=== PATIENT | male | born 1990 | race Caucasian/White ===

== ENCOUNTER 2022-02-28 13:01 | Emergency (ER) | payer MEDICAID, SELFPAY ==
[2022-02-28 13:03] VITALS: BP 130/89; PULSE 108; RESP 20; TEMP 36.6; O2SAT 99
--- NOTE | 2022-02-28 13:43 | ED.GENADUL_ITS ---
Discharge Plan Disposition Patient Disposition: STILL A PATIENT Condition: Stable Discharge Details Clinical Impression: Depression with suicidal ideation Primary Care Provider: Unknown,Unknown ED Provider: Charis Ayala Home Meds and New Rx's Prescriptions: No Action prazosin 1 mg capsule 1 cap PO HS lamotrigine 25 mg tablet 1 tab PO DAILY epinephrine 0.3 mg/0.3 mL auto-injector 7 ea subcut ONCE albuterol sulfate [ProAir HFA] 90 mcg/actuation HFA aerosol inhaler 1 - 2 inh INHALATION Q4-5H PRN Discharge Data Discharge Date/Time-TO BE ENTERED AT DEPARTURE: 02/28/22 18:14 Medical Decision Making <OLE Brito - Last Filed: 02/28/22 15:39> 31-year-old gentleman who was at the care bed on Thursday for ongoing depression and SI, had medication changes, presents now to the ER requesting hospitalization after he was told by his that she wants a divorce. He has no acute medical concerns or complaints. Using the [employer] medical clearance form I do not believe that laboratory values are indicated. I will obtain a urine drug sample as well as a COVID test. I have requested a mental health evaluation, interim care plan, and a CPSO. Tox screen positive for THC. COVID is pending. Mental health evaluation completed, patient will be a voluntary mental health placement. They are initially hopeful that potential placement may happen today. Will await to hear back from them. If placement is found the patient can be directed transfer from the ER with no placement happens this evening then we can reassess the potential to admit to our facility until placement has been found. COVID-negative This documentation was generated using [employer] dictation system, please disregard any oddities of phrase or misspellings. Lab Data Lab results reviewed: Yes I reviewed the patient's lab results. Labs: Laboratory Tests Range/Units 02/28/22 02/28/22 02/28/22 13:21 13:21 13:21 WBC Cancelled RBC Cancelled Hgb Cancelled Hct Cancelled MCV Cancelled MCH Cancelled MCHC Cancelled RDW Cancelled Plt Count Cancelled MPV Cancelled Immature Gran % Cancelled Neutrophils % Cancelled Band Neutrophils % Cancelled Lymphocytes % Cancelled Atypical Lymphs % Cancelled Monocytes % Cancelled Eosinophils % Cancelled Basophils % Cancelled Metamyelocytes % Cancelled Myelocytes % Cancelled Promyelocytes % Cancelled Other Cells % Cancelled Nucleated RBC % Cancelled Absolute Neutrophils Cancelled Absolute Lymphocytes Cancelled Absolute Monocytes Cancelled Absolute Eosinophils Cancelled Absolute Basophils Cancelled RBC Morphology Cancelled Polychromasia Cancelled Hypochromasia Cancelled Poikilocytosis Cancelled Basophilic Stippling Cancelled Anisocytosis Cancelled Microcytosis Cancelled Macrocytosis Cancelled Spherocytes Cancelled Tear Drop Cells Cancelled Ovalocytes Cancelled Stomatocytes Cancelled [place] Bodies Cancelled Rodrigue Cells/Echinocytes Cancelled Acanthocytes (Spur) Cancelled Schistocytes Cancelled Sodium Cancelled Potassium Cancelled Chloride Cancelled Carbon Dioxide Cancelled Anion Gap Cancelled BUN Cancelled Creatinine Cancelled Estimated GFR/1.73 m2 Cancelled Glucose Cancelled Calcium Cancelled Total Bilirubin Cancelled AST Cancelled ALT Cancelled Alkaline Phosphatase Cancelled Total Protein Cancelled Albumin Cancelled TSH Cancelled Urine Color Urine Clarity Urine pH Ur Specific Loiza Urine Protein Urine Ketones Urine Blood Urine Nitrite Urine Bilirubin Urine Urobilinogen Ur Leukocyte Esterase Urine Glucose Salicylates Cancelled Urine Opiates Screen (Negative) Urine Methadone Screen (Negative) Acetaminophen Cancelled Ur Barbiturates Screen (Negative) Ur Tricyclics Screen (Negative) Ur Amphetamines Screen (Negative) U Benzodiazepines Scrn (Negative) Urine Cocaine Screen (Negative) Ur THC Screen (Negative) Ethyl Alcohol Cancelled COVID-19 Source SARS-CoV-2 (PCR) (Negative) Range/Units 02/28/22 02/28/22 02/28/22 13:30 13:40 13:41 WBC RBC Hgb Hct MCV MCH MCHC RDW Plt Count MPV Immature Gran % Neutrophils % Band Neutrophils % Lymphocytes % Atypical Lymphs % Monocytes % Eosinophils % Basophils % Metamyelocytes % Myelocytes % Promyelocytes % Other Cells % Nucleated RBC % Absolute Neutrophils Absolute Lymphocytes Absolute Monocytes Absolute Eosinophils Absolute Basophils RBC Morphology Polychromasia Hypochromasia Poikilocytosis Basophilic Stippling Anisocytosis Microcytosis Macrocytosis Spherocytes Tear Drop Cells Ovalocytes Stomatocytes [place] Bodies [place] Cells/Echinocytes Acanthocytes (Spur) Schistocytes Sodium Potassium Chloride Carbon Dioxide Anion Gap BUN Creatinine Estimated GFR/1.73 m2 Glucose Calcium Total Bilirubin AST ALT Alkaline Phosphatase Total Protein Albumin TSH Urine Color Cancelled Urine Clarity Cancelled Urine pH Cancelled Ur Specific [place] Cancelled Urine Protein Cancelled Urine Ketones Cancelled Urine Blood Cancelled Urine Nitrite Cancelled Urine Bilirubin Cancelled Urine Urobilinogen Cancelled Ur Leukocyte Esterase Cancelled Urine Glucose Cancelled Salicylates Urine Opiates Screen (Negative) Negative Urine Methadone Screen (Negative) Negative Acetaminophen Ur Barbiturates Screen (Negative) Negative Ur Tricyclics Screen (Negative) Negative Ur Amphetamines Screen (Negative) Negative U Benzodiazepines Scrn (Negative) Negative Urine Cocaine Screen (Negative) Negative Ur THC Screen (Negative) Positive A Ethyl Alcohol COVID-19 Source Nasal/Nares SARS-CoV-2 (PCR) (Negative) Negative <OLE Terrell - Last Filed: 03/01/22 15:36> 31-year-old gentleman who was at the care bed on Thursday for ongoing depression and SI, had medication changes, presents now to the ER requesting hospital ization after he was told by his that she wants a divorce. He has no acute medical concerns or complaints. Using the [employer] medical clearance form I do not believe that laboratory values are indicated. I will obtain a urine drug sample as well as a COVID test. I have requested a mental health evaluation, interim care plan, and a CPSO. Tox screen positive for THC. COVID is pending. Mental health evaluation completed, patient will be a voluntary mental health placement. They are initially hopeful that potential placement may happen today. Will await to hear back from them. If placement is found the patient can be directed transfer from the ER with no placement happens this evening then we can reassess the potential to admit to our facility until placement has been found. COVID-negative This documentation was generated using [employer] dictation system, please disregard any oddities of phrase or misspellings. LB: Care is accepted in signout from Miki Schwarz physician library media assistant pending admission versus transfer to mental health facility [facility] has accepted this patient and he is preparing for transportation He has been alert, oriented, calm, and cooperative throughout this encounter, he is made aware regarding transfer and is agreeable at this time HPI <OLE Brito - Last Filed: 02/28/22 15:39> General Mode of arrival: EMS . Date/Time Provider Initiated Documentation: 02/28/22 13:09 . Limitations to Documentation: no limitations . Information obtained by: patient and EMS . HPI Narrative: This is a 31-year-old gentleman, who reports past medical history of depression, SI, bipolar disorder, IBS, presenting from the care bed via EMS for worsening depression and SI requesting hospitalization. Patient reports that he was at the care bed starting Thursday for worsening depression and SI, medication changes were made, he began taking the Latuda and his dose of lamotrigine was increased. He states that he felt well overnight and into today, like the medication was a good change; however, today his came and stated she wanted a divorce which exacerbated his symptoms. Patient states that he had a negative COVID test on Thursday at that time of his placement. He denies any acute medical concerns or complaints, recent illness or trauma. Patient states that he has been hospitalized in the past for depression and SI. He admits to marijuana use but denies other drug or alcohol use. Related Data Home Medications Medication Instructions Recorded Confirmed albuterol sulfate 90 mcg/actuation 1 - 2 inh inhalation Q4-5H PRN 02/28/22 02/28/22 aerosol inhaler (ProAir HFA) epinephrine 0.3 mg/0.3 mL 7 ea subcut ONCE 02/28/22 02/28/22 injection, auto-injector lamotrigine 25 mg tablet 1 tab PO DAILY 02/28/22 02/28/22 prazosin 1 mg capsule 1 cap PO HS 02/28/22 02/28/22 Allergies Allergy/AdvReac Type Severity Reaction Status Date / Time cinnamon Allergy Severe Anaphylaxis Unverified 02/28/22 14:00 egg Allergy Severe Anaphylaxis Unverified 02/28/22 14:00 mushroom Allergy Severe Anaphylaxis Unverified 02/28/22 14:00 shellfish derived Allergy Severe Anaphylaxis Unverified 02/28/22 14:00 gluten AdvReac Intermediate Diarrhea Unverified 02/28/22 14:00 lactose AdvReac Intermediate Diarrhea Unverified 02/28/22 14:00 General Stated Complaint: PsychEval CARITO: 2 Review of Systems <OLE Brito - Last Filed: 02/28/22 15:39> Constitutional Constitutional: Denies fatigue, Denies fever(s), Denies headache(s) and Denies weakness Eyes Eyes: Denies change in vision ENT Ears, Nose, Mouth, and Throat: Denies headache(s) and Denies neck pain Cardiovascular Cardiovascular: Denies chest pain and Denies dyspnea Respiratory Respiratory: Denies cough and Denies dyspnea Gastrointestinal Gastrointestinal: Denies abdominal pain, Reports diarrhea (chronic), Denies nausea and Denies vomiting Musculoskeletal Musculoskeletal: Denies back pain, Denies neck pain, Denies numbness and Denies tingling Integumentary/Breasts Skin/Breast: Denies rash Neurologic Neurologic: Denies headache(s), Denies numbness, Denies tingling and Denies weakness Psychiatric Psychiatric: Reports depression, Denies homicidal ideation and Reports suicidal ideation Endocrine Endocrine: Denies fatigue PFSH <OLE Brito - Last Filed: 02/28/22 15:39> All Active Problems (Updated 02/28/22 @ 14:51 by OLE Brito) Depression with suicidal ideation (Acute) Social History Smoking/Tobacco Use Status: Never Smoking risk assessment performed?: Yes Exam <OLE Brito - Last Filed: 02/28/22 15:39> Const General: cooperative, healthy appearing, comfortable and no acute distress Orientation: alert, awake and oriented x3 HENMT Head: normal to inspection, normocephalic and atraumatic Face and sinus: normal facial exam Mouth: moist mucous membranes Eyes General: appearance normal, both eyes and all related structures Conjunctivae: conjunctivae normal Neck Neck: normal visual inspection, full ROM, no meningeal signs, trachea midline and supple Resp Effort & Inspection: normal respiratory effort and able to speak in complete sentences Auscultation: clear to auscultation bilaterally Cardio Rate: regular rate Rhythm: regular rhythm GI Palpation: soft and nontender Back/Spine/Pelvis Back: No back tenderness Skin General skin exam: no rashes or lesions noted Neuro General: patient alert, patient awake, patient oriented x3, moves all extremities and no focal motor deficits Cognition: normal cognition Speech: speech normal Gait: normal gait Motor: muscle tone normal throughout Sensory Exam: no sensory deficits noted Extrem General: normal to inspection, full ROM and capillary refill normal Psych Appearance: grossly normal Mental Status: mental status grossly normal Speech and Movement: speech and movement normal Mood: dysthymic mood Affect: sad Attitude: cooperative Thought Process: normal Thought Content: suicidality Insight: fair Judgment: fair Course <OLE Brito - Last Filed: 02/28/22 15:39> Vital Signs Vital signs: Vital Signs Temperature 36.6 C 02/28/22 13:03 Pulse 108 H 02/28/22 13:03 Respiratory Rate 20 02/28/22 13:03 Blood Pressure 130/89 02/28/22 13:03 Pulse Oximetry 99 02/28/22 13:03 Temperature 36.6 C 02/28/22 13:03 Temperature Source Skin 02/28/22 13:03 Pulse 108 H 02/28/22 13:03 Respiratory Rate 20 02/28/22 13:03 Blood Pressure 130/89 02/28/22 13:03 Blood Pressure Position Sitting 02/28/22 13:03 Pulse Oximetry 99 02/28/22 13:03 Oxygen Delivery Method Room Air 02/28/22 13:03 Oxygen Flow Rate 0 02/28/22 13:03 Sign Out <OLE Brito - Last Filed: 02/28/22 15:39> Sign Out Data: Sign Out Comment: Depression with SI. Medically cleared. Mental health evaluation completed, currently a voluntary placement. If placement is found this evening transfer from the ER, otherwise admit until placement is found. Last updated by Miki Schwarz PA at 02/28/22 15:14
[2022-02-28 13:48] LABS: Source Nasal/Nares
--- NOTE | 2022-02-28 13:58 | NUR.NOTE ---
Nursing Note: Patients home meds sent to pharmacy.
[2022-02-28 14:05] LABS: *AMPHETAMINES SCREEN URINE Negative (Negative); *BARBITURATES SCREEN URINE Negative (Negative); *BENZODIAZEPINES SCREEN URINE Negative (Negative); Cannabinoids THC Positive (Negative); Cocaine Screen,Urine Negative (Negative); METHADONE URINE SCREEN Negative (Negative); OPIATES URINE SCREEN Negative (Negative)
[2022-02-28 14:06] LABS: Tricyclic Antidepressants Negative (Negative)
[2022-02-28 14:38] LABS: COVID-19 PCR Negative (Negative)
--- NOTE | 2022-02-28 14:50 | CMPROGNOTE_ITS ---
- If Service Date Differs Date of service: 02/28/22 Time of Service: 14:50 Care Management Progress Note S/O: Diony is awaiting inpatient psych placement. He presented to the ER following a conversation with his , which ended with her asking for a divorce. Diony has been appropriate, cooperative and pleasant per report. He is being closely monitored and requires a 1:1 CSPO. He was recently [facility] and [facility]. A: 31 year old male who presented to [facility] ER on 02/28/22 with worsening depression, SI. P: Diony is being followed by [facility] Operating Systems Programmer's per protocol and requires a 1:1 CSPO. Diony is seeking voluntary admission to our facility until inpatient psych placement is found.
--- NOTE | 2022-02-28 15:17 | PDOC.CMSAFED ---
- If Service Date Differs Date of service: 02/28/22 Time of Service: 15:17 Care Management Safety Plan Status: Voluntary - Guarianship if Applicable Guardianship: Other - Reason for Wait Reason for Wait: Other (seeking inpatient admission while waiting for appropriate psych placement) VOLUNTARY FOR INPATIENT PSYCHIATRIC STABILIZATION. Patient is appropriate in all interactions since arriving at [facility]; Pt has demonstrated appropriate coping and communication skills, has articulated his or her needs and concerns and is fully engaged during staff interactions. Safety plan has been established with patient, and care team, to adhere to patient goals, identify restrictions based on behavioral status, address nutrition, and determine allowed personal belongings, tools for hygiene and personal care. Determine level of activity including ambulation, level of supervision, visitors, and determine privileges based on behaviors and level of engagement by pt. SAFETY PLAN: 1. Will remain on suicide precautions. In Paper Clothes 2. Will remain in room under direct supervision of one-on-one staff at all times provided by CPSO; KATI, [employer] statistical methods professor. 3. May have paper cups, plates, finger foods as well as a cardboard spoon with which to eat meals. 4. Follow [facility] Management of the Admitted Behavioral Health Patient policy. 5. Comfort bath system only, shower permitted with escort at RN discretion. 6. No personal belongings-soft items permitted at RN discretion. 7. Visitors-none at this time. 8. Activities: soft cart items approved per RN discretion. 9. Bathroom privileges with escort in the ED, available in room without limitation on M/S. 10. Phone: contact limited to family at this time, via cordless phone at RN discretion. 11. Due to VOLUNTARY status, if patient wishes to leave [facility], staff will contact [facility] Crisis Screener ([phone]) and On-Call Outbound Telemarketing Representative ([phone]) as soon as possible. In the event of elopement, notify [place] [employer] ([phone]). Patient is currently voluntarily at [facility] and seeking inpatient admission when a bed becomes available. [facility] Frontline Data Communications Technician will continue seeking placement. Please contact the Water T[employer] Outbound Telemarketing Representative ([phone]) and [facility] Data Communications Technician ([phone]) for any needed changes in the Safety Plan. Safety plan has been provided to interdepartmental care team.
== END 2022-02-28 18:14 | disposition still patient (30) ==
PROVIDERS: Physician Assistant; Emergency Provider Physician Assistant
DX: F32.A Depression, unspecified (principal); Z20.822 Contact with and (suspected) exposure to COVID-19
CPT/HCPCS: 80053; 80307; 87635; 99285; 80320; 80329; 81003; 84443; 85025; 99284